=== PATIENT | female | born 1940 | race Caucasian/White ===

== ENCOUNTER 2018-03-07 16:40 | Emergency (ER) | payer MEDICARE, OTHER ==
[2018-03-07] MEDS: SOD CHLORIDE 0.9% 500 ML IV (17:30)
[2018-03-07 17:43] LABS: ADD MAN DIFF? NO
[2018-03-07 17:50] LABS: BASOPHILS % 0.5 % (0.0-2.0); HEMATOCRIT 34.3 % (37.0-47.0); HEMOGLOBIN 11.4 g/dl (12.0-16.0); LYMPHOCYTES # 1.6 10^3/ul (0.8-2.9); LYMPHOCYTES % 20.5 % (15.0-51.0); MEAN CORPUSCULAR HEMOGLOBIN 30.4 pg (29.0-33.0); MEAN CORPUSCULAR HGB CONC 33.2 g/dl (32.0-37.0); MEAN CORPUSCULAR VOLUME 91.5 fl (82.0-101.0); MEAN PLATELET VOLUME 10.6 fl (7.4-10.4); MONOCYTE # 0.7 10^3/ul (0.3-0.9); MONOCYTES % 8.6 % (0.0-11.0); NEUTROPHIL # 5.5 10^3/ul (1.6-7.5); NEUTROPHILS % 69.1 % (39.0-77.0); PLATELET COUNT 228 10^3/UL (140-415); RED BLOOD COUNT 3.75 10^6/ul (4.20-5.40); RED CELL DISTRIBUTION WIDTH 13.2 % (11.5-14.5)
[2018-03-07 18:09] LABS: ANION GAP 16 (8-16); BLOOD UREA NITROGEN 22 mg/dl (7-20); CALCIUM 9.2 mg/dl (8.4-10.2); CARBON DIOXIDE 26 mmol/L (21-31); CHLORIDE 103 mmol/L (97-110); CREATININE 0.95 mg/dl (0.44-1.00); GLUCOSE 121 mg/dl (70-220); SODIUM 141 mmol/L (135-144)
[2018-03-07] MEDS: morphine 10 MG INJ IV ×2 (18:11→20:18)
[2018-03-07] MEDS: ONDANSETRON 4 MG INJ IV (18:11)
[2018-03-07 18:21] LABS: TROPONIN-I < 0.012 ng/ml (0.00-0.12)
[2018-03-07 20:07] LABS: URINE BLOOD (Dip) POC Negative (NEGATIVE); URINE GLUCOSE (Dip) POC Negative (NEGATIVE); URINE KETONES (Dip) POC Negative (NEGATIVE); URINE LEUKOCYTE EST (Dip) POC Negative (NEGATIVE); URINE NITRITE (Dip) POC Negative (NEGATIVE); URINE TOTAL PROTEIN POC 1+ (NEGATIVE)
[2018-03-07] MEDS: PROPOFOL 200 MG INJ IV (21:11)
== END 2018-03-07 22:07 | disposition home or self-care (01) ==
LOC: E/R 16:40
DX: S52.611A Displaced fracture of right ulna styloid process, initial encounter for closed fracture (principal); S52.501A Unspecified fracture of the lower end of right radius, initial encounter for closed fracture; I10 Essential (primary) hypertension; W18.39XA Other fall on same level, initial encounter; Y92.9 Unspecified place or not applicable; Z79.82 Long term (current) use of aspirin
CPT/HCPCS: 25605; 36415; 71045; 73100; 73110-RT; 80048; 81003; 84484; 85025; 93005; 94770; 96374; 96375; 96376; 99285-25